=== PATIENT | male | born 1945 | race Caucasian/White ===

== ENCOUNTER 2017-01-01 09:49 | Emergency (ER) | payer MEDICARE, MEDICAID ==
--- NOTE | 2017-01-01 10:09 | Emergency Department Record ---
History of Present Illness - General Chief complaint: Weakness Stated complaint: LOW POTASSIUM Time Seen by Provider: 01/01/17 10:05 Source: Patient Mode of Arrival: Ambulatory Limitations: No limitations - History of Present Illness Initial comments: The patient is here for generalized weakness for about 3 weeks. 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 Rodriguez last Thursday and had lab work ordered which was performed yesterday. He got a call from the lab and was told his K+ was 2.9 and to proceed to the ER but he decided to come today. The patient denies any CP, SOB, BROCK, or sweating. He is on Lasix and 10 meq of K+ per day and did take 2 extra pills yesterday. Today he has not yet taken his Lasix but did take his K+. MD Complaint: Generalized weakness Onset/Timin -: Week(s) Location: Generalized Consistency: Constant Associated Symptoms: Denies other symptoms - Jammie Coma Scale Eye Response: (4) Open spontaneously Motor Response: (6) Obeys commands Verbal Response: (5) Oriented Jammie Total: 15 - Related Data Home Medications Medication Instructions Recorded Confirmed Last Taken Amiodarone HCl [Pacerone] 200 mg PO DAILY 01/01/17 01/01/17 01/01/17 Bisacodyl [Dulcolax] 5 mg PO DAILY 01/01/17 01/01/17 01/01/17 Digoxin [Digitek] 125 mcg PO DAILY 01/01/17 01/01/17 01/01/17 Allergies Allergy/AdvReac Type Severity Reaction Status Date / Time bumetanide [From Bumex] Allergy Severe cramping Verified 06/06/15 10:36 AMANDA Inhibitors Allergy Intermediate cough Verified 06/06/15 10:36 bopindolol AdvReac Unknown PT UNSURE Verified 06/06/15 10:36 OF REACTION carvedilol [From Coreg] AdvReac Unknown PT UNSURE Verified 06/06/15 10:36 OF REACTION celecoxib [From Celebrex] AdvReac Unknown PT UNSURE Verified 06/06/15 10:36 OF REACTION gabapentin [From Neurontin] AdvReac Unknown PT UNSURE Verified 06/06/15 10:36 OF REACTION pindolol AdvReac Unknown PT UNSURE Verified 06/06/15 10:36 OF REACTION piroxicam AdvReac Unknown PT UNSURE Verified 06/06/15 10:36 OF REACTION prednisone AdvReac Unknown PT UNSURE Verified 06/06/15 10:36 OF REACTION pregabalin AdvReac Unknown PT UNSURE Verified 06/06/15 10:36 OF REACTION warfarin AdvReac Unknown PT UNSURE Verified 06/06/15 10:36 OF REACTION Travel Screening - Travel/Exposure Within Last 30 Days Have you traveled within the last 30 days?: No - Travel/Exposure Within Last Year Have you traveled outside the [place] in the last year?: No - Additonal Travel Details Have you been exposed to anyone with a communicable illness?: No Review of Systems Constitutional: Denies: Chills, Fever Eyes: Denies: Eye discharge ENT: Denies: Congestion Respiratory: Denies: Cough, Dyspnea Past Medical History - SOCIAL HISTORY Smoking Status: Current every day smoker Alcohol Use: None Drug Use: None - RESPIRATORY Hx Respiratory Disorders: No - CARDIOVASCULAR Hx Cardio Disorders: Yes Hx Cardiac Cath: Yes Hx Heart Attack: Yes (Triple bypass 2009) Hx Hypertension: Yes Hx Pacemaker/Defib: Yes (2012) - NEURO Hx Neuro Disorders: No - GI Hx GI Disorders: Yes Hx Hiatal Hernia: Yes Comment:: Inguinal hernia - Hx Genitourinary Disorders: No - ENDOCRINE Hx Endocrine Disorders: No - MUSCULOSKELETAL Hx Musculoskeletal Disorders: No - PSYCH Hx Psych Problems: No - HEMATOLOGY/ONCOLOGY Hx Hematology/Oncology Disorders: Yes Hx Cancer: Yes (Skin) Hx Chemotherapy: No Hx Radiation Therapy: No Family Medical History Any Significant Family History?: No Hx Heart Disease: Father Physical Exam - General General Appearance: Alert, Oriented x3, Cooperative, No acute distress - Head Head exam: Atraumatic, Normocephalic, Normal inspection - Eye Eye exam: Normal appearance, PERRL - ENT Throat exam: Normal inspection. negative: Tonsillar erythema, Tonsillar exudate - Neck Neck exam: Normal inspection, Full ROM. negative: Tenderness - Respiratory Respiratory exam: Normal lung sounds bilaterally. negative: Respiratory distress - Cardiovascular Cardiovascular Exam: Regular rate, Normal rhythm, Normal heart sounds - GI/Abdominal GI/Abdominal exam: Soft, Normal bowel sounds. negative: Tenderness - Extremities Extremities exam: Normal inspection, Full ROM, Normal capillary refill. negative: Tenderness - Neurological Neurological exam: Normal gait, Oriented X3. negative: Abnormal gait, Alert, Motor sensory deficit Course Vital Signs 01/01/17 09:55 Temperature 98.5 F Pulse Rate 73 Respiratory 16 Rate Blood Pressure 142/82 Pulse Ox 99 - Reevaluation(s) Reevaluation #1: The patient is doing very well at this time. His potassium did return at 3.1 and he did receive 40 meq orally. We will consult with his PCP Dr. Rodriguez and increased his oral potassium. 01/01/17 12:38 Reevaluation #2: I did discuss the case withe Dr. Rodriguez and he does agree with the plan to discharge and increase the oral potassium. 01/01/17 14:10 Medical Decision Making - Data Complexity MDM Data: Labs Ordered and/or Reviewed - Lab Data Result diagrams: 01/01/17 10:21 01/01/17 10:21 - Radiology Data Radiology results: Report reviewed (BMP: WNL's except for a potassium of 3.1.) Disposition Disposition: Discharge Clinical Impression: Potassium depletion Disposition: Home, Self-Care Condition: (1) Good Instructions: Weakness (ED) Additional Instructions: Please double your dose of potassium to 2 pills daily. Continue the rest of your medicine as before. Please see Dr. Rodriguez next week in the specialty clinic. Return to the ER if worse. Referrals: [facility] [Provider Group] Forms: Patient Portal Access Time of Disposition: 13:30 Quality - Quality Measures Quality Measures: N/A - Blood Pressure Screening View Details: Yes Does Patient Have Any of the Following: No, Active Dx of HTN Blood Pressure Classification: Hypertensive Reading Systolic Measurement: 137 Diastolic Measurement: 90 Screening for High Blood Pressure: Patient Exclusion, Hx of HTN [[id number]]
[2017-01-01] MEDS: POTASSIUM CHLORIDE 20 MEQ TABLET PO ONE (10:25)
[2017-01-01 10:33] LABS: HEMATOCRIT 41.5 % (42.0-52.0); HEMOGLOBIN 13.2 gm/dl (14.0-18.0); MEAN CELL VOLUME 95.8 fl (81-97); MEAN CORPUSCULAR HGB CONC 31.8 g/dl (32-36); MEAN PLATELET VOLUME 12.7 fl (7.4-10.4); PLATELET COUNT 150 K/uL (130-400); RED BLOOD COUNT 4.33 M/uL (4.40-5.70); RED CELL DISTRIBUTION WIDTH 15.7 % (11.5-14.5); WHITE BLOOD COUNT W/O DIFF 5.9 K/uL (4.2-12.2)
[2017-01-01 10:38] LABS: MEAN CORPUSCULAR HEMOGLOBIN 30.4 pg (27-33)
== END 2017-01-01 13:48 | disposition home or self-care (01) ==
LOC: ER 09:49
DX: E87.6 Hypokalemia (principal); R53.1 Weakness; I10 Essential (primary) hypertension; I25.2 Old myocardial infarction; F17.210 Nicotine dependence, cigarettes, uncomplicated
CPT/HCPCS: 80048; 85027; 99283; 99284